=== PATIENT | male | born 1995 | race Caucasian/White ===

== ENCOUNTER 2019-01-22 18:08 | Emergency (ER) | payer SELFPAY ==
[2019-01-22] MEDS ORDERED: NA CHLORIDE 0.9% 1,000 ML ONE (19:24)
[2019-01-22] MEDS ORDERED: MECLIZINE HCL 12.5 MG TAB ONE (19:24)
[2019-01-22 19:49] LABS: Urine Blood NEGATIVE (NEG); Urine Glucose NEGATIVE (NEG); Urine Protein NEGATIVE (NEG); Urine Specific Gravity 1.015 (1.005-1.030)
[2019-01-22 19:59] LABS: Absolute Lymphocytes (CBC) 1.1 K/uL (0.7-4.9); Absolute Monocytes 0.6 K/uL (0.1-1.3); Absolute Neutrophil 8.4 K/uL (1.8-8.0); Basophils % 0.1 % (0-1.3); Eosinophils % 0.3 % (0-4.4); Hematocrit 42.5 % (39.6-49.0); Lymphocytes % 10.8 % (15.3-44.8); MPV 9.9 fL (7.6-11.3); Monocytes % 5.5 % (3.3-12.3)
[2019-01-22 20:02] LABS: ALT/SGPT 60 U/L (12-78); AST/SGOT 45 U/L (15-37); Albumin 4.5 g/dL (3.4-5.0); Alkaline Phosphatase 80 U/L (45-117); BUN Blood Urea Nitrogen 11 mg/dL (7-18); Bicarbonate 29 mmol/L (21-32); Bilirubin Direct < 0.1 mg/dL (0-0.2); Bilirubin Total 0.3 mg/dL (0.2-1.0); Glucose Level 105 mg/dL (74-106); Lipase 73 U/L (73-393); Potassium 3.3 mmol/L (3.5-5.1); Protein, Total 7.7 g/dL (6.4-8.2); Sodium Level 134 mmol/L (136-145)
[2019-01-22] MEDS ORDERED: POTASSIUM CL SA 10 MEQ TAB PO ONE (20:49)
--- NOTE | 2019-01-22 21:08 | ER ---
Nurse's Notes [facility] Name: Rolf Pa Age: 23 yrs Sex: Male : 1995 Arrival Date: 01/22/2019 Time: 18:10 Bed 23 Private MD: Diagnosis: Anxiety disorder, unspecified Presentation: 01/22 18:15 Presenting complaint: Patient states: i think im dehydrated, im shaky and my body is hj going numb and hard to breathe; i drink an energy drink earlier;. Transition of care: patient was not received from another setting of care. Onset of symptoms was January 22, 2019. Risk Assessment: Do you want to hurt yourself or someone else? Patient reports no desire to harm self or others. Initial Sepsis Screen: Does the patient meet any 2 criteria? No. Patient's initial sepsis screen is negative. Does the patient have a suspected source of infection? No. Patient's initial sepsis screen is negative. Care prior to arrival: None. 18:15 Method Of Arrival: Ambulatory 18:15 Acuity: MARTIN 3 hj Triage Assessment: 18:17 General: Appears in no apparent distress. uncomfortable, Behavior is cooperative, hj appropriate for age, anxious. Pain: Denies pain. Respiratory: Reports Onset: The symptoms/episode began/occurred Historical: - Allergies: 18:16 No Known Allergies; hj - Home Meds: 18:16 None [Active]; hj - PMHx: 18:16 None; hj - PSHx: 18:16 None; hj - Immunization history:: Adult Immunizations up to date. - Social history:: Smoking status: Patient/guardian denies using tobacco, Patient/guardian denies using alcohol. - Ebola Screening: : Patient negative for fever greater than or equal to 101.5 degrees Fahrenheit, and additional compatible Ebola Virus Disease symptoms Patient denies exposure to infectious person Patient denies travel to an Ebola-affected area in the 21 days before illness onset. Screenin:17 Abuse screen: Denies threats or abuse. Denies injuries from another. Nutritional hj screening: No deficits noted. Tuberculosis screening: No symptoms or risk factors identified. Fall Risk None identified. Assessment: 18:17 Cardiovascular: Rhythm is. Respiratory: Airway is patent Respiratory effort is even, hj unlabored, Respiratory pattern is regular, symmetrical, 19:19 Reassessment: pt reports that he started feeling bad earlier today. Had drank a "Bang" tl3 pre workout drink, feels somewhat nauseated, no vomiting. General: Appears distressed, uncomfortable, slender, well groomed, well developed, well nourished, Behavior is cooperative, appropriate for age, anxious. Pain: Complains of pain in chest. Neuro: Level of Consciousness is awake, alert, obeys commands, Oriented to person, place, time, situation, Appropriate for age. Cardiovascular: Patient's skin is warm and dry. Rhythm is regular. Respiratory: Airway is patent Respiratory effort is even, unlabored, Respiratory pattern is regular, symmetrical, Breath sounds are clear bilaterally. GI: No signs and/or symptoms were reported involving the gastrointestinal system. : No signs and/or symptoms were reported regarding the genitourinary system. EENT: No signs and/or symptoms were reported regarding the EENT system. Derm: No signs and/or symptoms reported regarding the dermatologic system. Musculoskeletal: No signs and/or symptoms reported regarding the musculoskeletal system. 20:42 Reassessment: Patient appears in no apparent distress at this time. No changes from tl3 previously documented assessment. Patient and/or family updated on plan of care and expected duration. Pain level reassessed. Patient is alert, oriented x 3, equal unlabored respirations, skin warm/dry/pink. pt states that he feels better. 21:13 Reassessment: pt being discharged. tl3 Vital Signs: 18:17 BP 136 / 70; Pulse 85; Resp 18; Temp 99.1(O); Pulse Ox 100% on R/A; Weight 77.11 kg; Height 5 ft. 10 in. (177.80 cm); 19:19 BP 138 / 75; Pulse 82; Resp 18; Pulse Ox 100% on R/A; tl3 20:42 BP 101 / 74; Pulse 68; Resp 18; Pulse Ox 100% on R/A; tl3 18:17 Body Mass Index 24.39 (77.11 kg, 177.80 cm) ED Course: 18:10 Patient arrived in ED. mr 18:16 Triage completed. 18:17 Arm band placed on left wrist. 18:17 Patient has correct armband on for positive identification. Bed in low position. Call light in reach. Side rails up X 1. Adult w/ patient. 18:47 Denise Thornton FNP is [facility]. va 18:47 Bill Orr MD is Attending Physician. va 18:59 Lynsey Bernstein, RN is Primary Nurse. tl3 19:25 Initial lab(s) drawn, by wi, sent to lab. Inserted saline lock: 20 gauge in right tl3 antecubital area, using aseptic technique. 19:40 No provider procedures requiring assistance completed. tl3 20:36 Basic Metabolic Panel Sent. tl3 21:14 IV discontinued, intact, bleeding controlled, No redness/swelling at site. Pressure tl3 dressing applied. Administered Medications: 19:20 Drug: Meclizine 25 mg Route: PO; tl3 20:35 Follow up: Response: No adverse reaction tl3 19:39 Drug: NS 0.9% 1000 ml Route: IV; Rate: 1 bolus; Site: right antecubital; Delivery: tl3 Primary tubing; 20:45 Follow up: IV Status: Completed infusion; IV Intake: 1000ml tl3 20:40 Drug: Potassium Chloride 40 mEq Route: PO; tl3 20:41 Follow up: Response: Medication administered at discharge. tl3 Intake: 20:45 IV: 1000ml; Total: 1000ml. tl3 Outcome: 20:42 Condition: stable tl3 21:07 Discharge ordered by . va 21:14 Discharged to home ambulatory. tl3 21:14 Condition: stable tl3 21:14 Discharge instructions given to patient, Instructed on discharge instructions, follow up and referral plans. Demonstrated understanding of instructions, follow-up care. 21:15 Patient left the ED. tl3 Signatures: Denise Thornton FNP [facility] Patricia GonzalezGilmar RN RN Lynsey Bernstein, RN RN tl3 Corrections: (The following items were deleted from the chart) 18:20 18:17 Pulse 85bpm; Resp 18bpm; Pulse Ox 100% RA; Temp 99.1F Oral; 77.11 kg; Height 5 hj ft. 10 in.; BMI: 24.3; hj 21:14 20:42 IV discontinued, intact, bleeding controlled, No redness/swelling at site. tl3 Pressure dressing applied, tl3 21:14 20:42 Discharged to home ambulatory, tl3 tl3
--- NOTE | 2019-01-22 21:08 | EDPHYS ---
Physician Documentation [facility] Name: Rolf Pa Age: 23 yrs Sex: Male : 1995 Arrival Date: 01/22/2019 Time: 18:10 Bed 23 Private MD: ED Physician Bill Orr HPI: 01/22 21:00 This 23 yrs old Male presents to ER via Ambulatory with complaints of nh Breathing Difficulty. 21:00 The patient has shortness of breath at rest. nh 21:04 Onset: The symptoms/episode began/occurred just prior to arrival. Duration: The nh symptoms are intermittent. The patient's shortness of breath has no apparent modifying factors. Associated signs and symptoms: Pertinent positives:. Severity of symptoms: At their worst the symptoms were moderate just prior to arrival, in the emergency department the symptoms are unchanged. The patient has not experienced similar symptoms in the past. The patient has not recently seen a physician. Patient reports drinking a bang energy drink around 2pm and having what he states are anxiety attacks since. states that he thinks he is dehydrated.No complaints at this time. Historical: - Allergies: 18:16 No Known Allergies; hj - Home Meds: 18:16 None [Active]; hj - PMHx: 18:16 None; hj - PSHx: 18:16 None; hj - Immunization history:: Adult Immunizations up to date. - Social history:: Smoking status: Patient/guardian denies using tobacco, Patient/guardian denies using alcohol. - Ebola Screening: : Patient negative for fever greater than or equal to 101.5 degrees Fahrenheit, and additional compatible Ebola Virus Disease symptoms Patient denies exposure to infectious person Patient denies travel to an Ebola-affected area in the 21 days before illness onset. ROS: 21:04 Constitutional: Negative for fever, chills, and weight loss, Eyes: Negative for injury, nh pain, redness, and discharge, ENT: Negative for injury, pain, and discharge, Neck: Negative for injury, pain, and swelling, Cardiovascular: Negative for chest pain, palpitations, and edema, Respiratory: Negative for shortness of breath, cough, wheezing, and pleuritic chest pain, Abdomen/GI: Negative for abdominal pain, nausea, vomiting, diarrhea, and constipation, Back: Negative for injury and pain, : Negative for injury, bleeding, discharge, and swelling, MS/Extremity: Negative for injury and deformity, Skin: Negative for injury, rash, and discoloration. Exam: 21:04 Constitutional: This is a well developed, well nourished patient who is awake, alert, nh and in no acute distress. Head/Face: Normocephalic, atraumatic. Eyes: Pupils equal round and reactive to light, extra-ocular motions intact. Lids and lashes normal. Conjunctiva and sclera are non-icteric and not injected. Cornea within normal limits. Periorbital areas with no swelling, redness, or edema. ENT: Nares patent. No nasal discharge, no septal abnormalities noted. Tympanic membranes are normal and external auditory canals are clear. Oropharynx with no redness, swelling, or masses, exudates, or evidence of obstruction, uvula midline. Mucous membranes moist. Neck: Trachea midline, no thyromegaly or masses palpated, and no cervical lymphadenopathy. Supple, full range of motion without nuchal rigidity, or vertebral point tenderness. No Meningismus. Chest/axilla: Normal chest wall appearance and motion. Nontender with no deformity. No lesions are appreciated. Cardiovascular: Regular rate and rhythm with a normal S1 and S2. No gallops, murmurs, or rubs. Normal PMI, no JVD. No pulse deficits. Respiratory: Lungs have equal breath sounds bilaterally, clear to auscultation and percussion. No rales, rhonchi or wheezes noted. No increased work of breathing, no retractions or nasal flaring. Abdomen/GI: Soft, non-tender, with normal bowel sounds. No distension or tympany. No guarding or rebound. No evidence of tenderness throughout. Back: No spinal tenderness. No costovertebral tenderness. Full range of motion. Vital Signs: 18:17 BP 136 / 70; Pulse 85; Resp 18; Temp 99.1(O); Pulse Ox 100% on R/A; Weight 77.11 kg; hj Height 5 ft. 10 in. (177.80 cm); 19:19 BP 138 / 75; Pulse 82; Resp 18; Pulse Ox 100% on R/A; tl3 20:42 BP 101 / 74; Pulse 68; Resp 18; Pulse Ox 100% on R/A; tl3 18:17 Body Mass Index 24.39 (77.11 kg, 177.80 cm) hj MDM: 18:47 Patient medically screened. dc 21:04 Data reviewed: vital signs, nurses notes, lab test result(s), radiologic studies, I nh have discussed the patient's presentation/case with the attending Emergency Department Physician; and as a result, I will discharge patient. Counseling: I had a detailed discussion with the patient and/or guardian regarding: the historical points, exam findings, and any diagnostic results supporting the discharge/admit diagnosis, lab results, radiology results, the need for outpatient follow up, to return to the emergency department if symptoms worsen or persist or if there are any questions or concerns that arise at home. 01/22 19:00 Order name: Basic Metabolic Panel dc 01/22 19:00 Order name: CBC with Diff; Complete Time: 20:35 dc 01/22 19:00 Order name: Hepatic Function; Complete Time: 20:35 dc 01/22 19:00 Order name: Lipase; Complete Time: 20:35 dc 01/22 19:01 Order name: Basic Metabolic Panel; Complete Time: 20:35 EDMS 01/22 19:41 Order name: Urine Dipstick--Ancillary (enter results); Complete Time: 20:35 mw2 01/22 19:00 Order name: IV Saline Lock; Complete Time: 19:40 dc 01/22 19:00 Order name: Labs collected and sent; Complete Time: 19:40 dc Administered Medications: 19:20 Drug: Meclizine 25 mg Route: PO; tl3 20:35 Follow up: Response: No adverse reaction tl3 19:39 Drug: NS 0.9% 1000 ml Route: IV; Rate: 1 bolus; Site: right antecubital; Delivery: tl3 Primary tubing; 20:45 Follow up: IV Status: Completed infusion; IV Intake: 1000ml tl3 20:40 Drug: Potassium Chloride 40 mEq Route: PO; tl3 20:41 Follow up: Response: Medication administered at discharge. tl3 Disposition: 01/22/19 21:07 Discharged to Home. Impression: Anxiety disorder, unspecified. - Condition is Stable. - Discharge Instructions: Panic Attacks. - Medication Reconciliation Form, Thank You Letter, Antibiotic Education, Prescription Opioid Use form. - Follow up: Private Physician; When: 2 - 3 days; Reason: Recheck today's complaints. - Problem is new. - Symptoms are unchanged. Addendum: 01/27/2019 11:34 Co-signature as Attending Physician, Bill Orr MD I agree with the assessment and [facility] plan of care. Signatures: Dispatcher [employer] EDMS Bill Orr MD MD [facility] Denise Thornton, ALCOHOL STILL OPERATOR ALCOHOL STILL OPERATOR dc Gilmar Fall RN RN Lynsey Bernstein RN RN tl3 Corrections: (The following items were deleted from the chart) 01/22 21:15 21:07 01/22/2019 21:07 Discharged to Home. Impression: Anxiety disorder, unspecified. tl3 Condition is Stable. Forms are Medication Reconciliation Form, Thank You Letter, Antibiotic Education, Prescription Opioid Use. Follow up: Private Physician; When: 2 - 3 days; Reason: Recheck today's complaints. Problem is new. Symptoms are unchanged. nh
== END 2019-01-22 21:15 | disposition home or self-care (01) ==
LOC: ER 18:08
DX: F41.9 Anxiety disorder, unspecified (principal)
CPT/HCPCS: 36415; 80048; 80076; 81003; 83690; 85025; 96360; 99283; J7030